=== PATIENT | male | born 1960 | race Caucasian/White ===

== ENCOUNTER 2017-03-12 15:40 | Emergency (ER) | payer BC, OTHER ==
[2017-03-12 15:52] VITALS: BP 168/99
[2017-03-12] MEDS ORDERED: Acetaminophen 500 MG Tab PO ONE (15:59)
--- NOTE | 2017-03-12 16:05 | EDM.PDOC ---
ED HPI GENERAL MEDICAL PROBLEM - General Chief Complaint: Chest Pain Stated Complaint: NAUSEA/LIGHTHEADED/SHOULDER PAIN Time Seen by Provider: 03/12/17 15:50 Source of Information: Reports: Patient, Old Records History Limitations: Reports: No Limitations - History of Present Illness INITIAL COMMENTS - FREE TEXT/NARRATIVE: 56 yo male with mild posterior chest/back pain today. Had chills this afternoon. Not aware of fever. Has no cardiac hx, but thought this might be his heart. No rash, cough, CATES, nausea, diarrhea, abdominal pain, dysuria, sore throat or earache. Here with . Nocturia x one. 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 (see below) (none) shoulders/ head Pain Score (Numeric/FACES): 3 - Related Data Allergies Allergy/AdvReac Type Severity Reaction Status Date / Time No Known Allergies Allergy Verified 12/05/15 06:50 Home Meds: Home Meds Azithromycin [IJD: Azithromycin] 250 mg PO QAM #6 tab 03/12/17 [Rx] Past Medical History HEENT History: Reports: Impaired Vision Respiratory History: Reports: None Genitourinary History: Reports: None Other Genitourinary History: spleenectomy Psychiatric History: Reports: None Endocrine/Metabolic History: Reports: Obesity/BMI 30+ Hematologic History: Reports: None Immunologic History: Reports: None Oncologic (Cancer) History: Reports: None - Infectious Disease History Infectious Disease History: Reports: Chicken Pox - Past Surgical History Cardiovascular Surgical History: Reports: Other (See Below) Other Cardiovascular Surgeries/Procedures: stress test, echo GI Surgical History: Reports: Other (See Below) Other GI Surgeries/Procedures: spleenectomy, liver lac patch Musculoskeletal Surgical History: Reports: Arthroscopic Knee Social & Family History - Tobacco Use Smoking Status *Q: Former Smoker Years of Tobacco use: 29 Packs/Tins Daily: 1 Second Hand Smoke Exposure: No - Alcohol Use Days Per Week of Alcohol Use: 0 - Recreational Drug Use Recreational Drug Use: No ED ROS GENERAL - Review of Systems Review Of Systems: See Below Constitutional: Reports: Chills. Denies: Fever, Diaphoresis, Decreased Appetite HEENT: Reports: No Symptoms Respiratory: Reports: Shortness of Breath (today with exertion, mild) Cardiovascular: Reports: Chest Pain (more in back) Endocrine: Reports: No Symptoms GI/Abdominal: Reports: No Symptoms : Reports: No Symptoms Musculoskeletal: Reports: Back Pain Skin: Reports: No Symptoms Neurological: Reports: No Symptoms ED EXAM, GENERAL - Physical Exam Exam: See Below Exam Limited By: No Limitations General Appearance: Alert, WD/WN, No Apparent Distress Eye Exam: Bilateral Eye: EOMI, Normal Inspection, PERRL Ears: Normal External Exam, Normal Canal, Hearing Grossly Normal, Normal TMs Ear Exam: Bilateral Ear: Auricle Normal, Canal Normal, TM normal Nose: Normal Inspection, Normal Mucosa, No Blood Throat/Mouth: Normal Inspection, Normal Lips, Normal Oropharynx, Normal Voice, No Airway Compromise Head: Atraumatic, Normocephalic Neck: Normal Inspection, Supple, Non-Tender Respiratory/Chest: No Respiratory Distress, Lungs Clear, Normal Breath Sounds, No Accessory Muscle Use Cardiovascular: Regular Rate, Rhythm, No Edema GI/Abdominal: Normal Bowel Sounds, Soft, Non-Tender, No Distention, Other ( 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 No: Distended, Guarding, Rigid, Rebound , Tender, Hernia, Mass Back Exam: Normal Inspection, Full Range of Motion. No: CVA Tenderness (R), CVA Tenderness (L), Decreased Range of Motion, Muscle Spasm, Paraspinal Tenderness, Vertebral Tenderness Extremities: Normal Inspection, Normal Range of Motion, Non-Tender, No Pedal Edema Neurological: Alert, Oriented, CN II-XII Intact, Normal Cognition, No Motor/ Sensory Deficits Psychiatric: Normal Affect, Normal Mood Skin Exam: Warm, Dry, Intact, Normal Color, No Rash Lymphatic: No Adenopathy EKG INTERPRETATION EKG Date: 03/12/17 Time: 15:50 Rhythm: NSR Rate (beats/min): 106 [place]: normal P-wave: present QRS: normal ST-T: normal QT: normal Comparison: NA - no prior EKG Course - Vital Signs Last Recorded V/S: Last Vital Signs Temp 38.8 C H 03/12/17 15:49 Pulse 108 H 03/12/17 15:49 Resp 18 06/07/17 15:49 BP 168/99 H 03/12/17 15:49 Pulse Ox 95 03/12/17 15:49 - Orders/Labs/Meds Orders: Active Orders 24 hr Category Date Time Status EKG Documentation Completion [RC] ASDIRECTED Care 03/12/17 15:51 Active Chest 2V [CR] Stat Exams 03/12/17 16:03 Taken CULTURE BLOOD [BC] Stat Lab 03/12/17 16:19 Ordered UA W/MICROSCOPIC [URIN] Stat Lab 03/12/17 16:05 Uncollected EKG 12 Lead [EK] Routine Ther 03/12/17 15:51 Ordered Labs: Laboratory Tests 03/12/17 Range/Units 16:09 WBC 9.9 (4.5-11.0) K/uL RBC 5.32 (4.30-5.90) M/uL Hgb 15.5 H (12.0-15.0) g/dL Hct 45.2 (40.0-54.0) % MCV 85 (80-98) fL MCH 29 (27-31) pg MCHC 34 (32-36) % Plt Count 282 (150-400) K/uL Meds: Medications Discontinued Medications Generic Name Dose Route Start Last Admin Trade Name Mejiaq PRN Reason Stop Dose Admin Acetaminophen 1,000 mg 03/12/17 15:59 03/12/17 16:03 Tylenol Extra Strength PO 03/12/17 16:00 1,000 mg ONETIME ONE Administration Azithromycin 500 mg 03/12/17 16:20 Zithromax PO 03/12/17 16:21 ONETIME ONE Departure - Departure Time of Disposition: 16:35 Disposition: Home, Self-Care 01 Condition: fair Clinical Impression: Pneumonia Qualifiers: Pneumonia type: due to unspecified organism Laterality: left Lung location: lower lobe of lung Qualified Code(s): J18.1 - Lobar pneumonia, unspecified organism Prescriptions: Azithromycin [IJD: Azithromycin] 250 mg PO QAM #6 tab Referrals: PCP,None [Primary Care Provider] - Forms: ED Department Discharge, Return to Work/School Form Additional Instructions: Take azithromycin as directed. Recheck in the clinic on Friday. Take acetaminophen 1000 mg every 6 hrs. Rest. Off work this week. - My Orders Last 24 Hours: My Active Orders 03/12/17 15:51 EKG Documentation Completion [RC] ASDIRECTED EKG 12 Lead [EK] Routine 03/12/17 16:03 Chest 2V [CR] Stat 03/12/17 16:05 UA W/MICROSCOPIC [URIN] Stat 03/12/17 16:19 CULTURE BLOOD [BC] Stat - Assessment/Plan Last 24 Hours: My Active Orders 03/12/17 15:51 EKG Documentation Completion [RC] ASDIRECTED EKG 12 Lead [EK] Routine 03/12/17 16:03 Chest 2V [CR] Stat 03/12/17 16:05 UA W/MICROSCOPIC [URIN] Stat 03/12/17 16:19 CULTURE BLOOD [BC] Stat
[2017-03-12] MEDS ORDERED: Azithromycin 250 MG Tab PO ONE (16:20)
--- NOTE | 2017-03-13 11:18 | CR ---
Chest 2V FINDINGS: The heart and vascular structures are normal in appearance. No infiltrates or effusions ar e demonstrated. The skeletal structures are unremarkable. IMPRESSION: Negative exam.
== END 2017-03-12 16:38 | disposition home or self-care (01) ==
LOC: JP.ED 15:40
DX: J18.9 Pneumonia, unspecified organism (principal); E66.9 Obesity, unspecified; Z90.81 Acquired absence of spleen; Z87.891 Personal history of nicotine dependence
CPT/HCPCS: 36415; 71020; 85027; 87040; 93005; 99285; A9270

== ENCOUNTER 2017-03-14 13:33 | Emergency (ER) | payer OTHER ==
[2017-03-14 13:52] VITALS: BP 95/66
--- NOTE | 2017-03-14 14:08 | EDM.PDOC ---
ED HPI GENERAL MEDICAL PROBLEM - General Chief Complaint: Respiratory Problem Stated Complaint: PNEUMONIA, FEVER Time Seen by Provider: 03/14/17 14:03 Source of Information: Reports: Patient, Family - History of Present Illness INITIAL COMMENTS - FREE TEXT/NARRATIVE: Seen in ER and diagnosed with pneumonia on Friday night. Started Zpak and has take 3 doses. Last had a temp today of 102.2. Has been taking Tylenol or Motrin. Pt does smoke but has not in the last several days. Onset: Sudden Onset Date: 03/18/17 Duration: Getting Worse, Intermittent Location: Reports: Chest Severity: Moderate Improves with: Reports: Medication Worsens with: Reports: None Associated Symptoms: Reports: Fever/Chills, Loss of Appetite, Malaise, Nausea/ Vomiting, Shortness of Breath hips Pain Score (Numeric/FACES): 4 - Related Data Allergies Allergy/AdvReac Type Severity Reaction Status Date / Time No Known Allergies Allergy Verified 03/14/17 13:44 Home Meds: Home Meds Azithromycin [IJD: Azithromycin] 250 mg PO QAM #6 tab 03/12/17 [Rx] Past Medical History HEENT History: Reports: Impaired Vision Respiratory History: Reports: None Genitourinary History: Reports: None Other Genitourinary History: spleenectomy Psychiatric History: Reports: None Endocrine/Metabolic History: Reports: Obesity/BMI 30+ Hematologic History: Reports: None Immunologic History: Reports: None Oncologic (Cancer) History: Reports: None - Infectious Disease History Infectious Disease History: Reports: Chicken Pox - Past Surgical History Cardiovascular Surgical History: Reports: Other (See Below) Other Cardiovascular Surgeries/Procedures: stress test, echo GI Surgical History: Reports: Other (See Below) Other GI Surgeries/Procedures: spleenectomy, liver lac patch Musculoskeletal Surgical History: Reports: Arthroscopic Knee Social & Family History - Tobacco Use Smoking Status *Q: Current Some Day Smoker Years of Tobacco use: 4 Packs/Tins Daily: 0.2 Used Tobacco, but Quit: No Second Hand Smoke Exposure: No - Caffeine Use Caffeine Use: Reports: Coffee, Soda - Alcohol Use Days Per Week of Alcohol Use: 0 - Recreational Drug Use Recreational Drug Use: No ED ROS GENERAL - Review of Systems Review Of Systems: See Below Constitutional: Reports: Fever, Chills, Malaise, Fatigue, Decreased Appetite HEENT: Reports: No Symptoms Respiratory: Reports: Cough Cardiovascular: Reports: No Symptoms GI/Abdominal: Reports: No Symptoms Skin: Reports: No Symptoms Neurological: Reports: No Symptoms ED EXAM, GENERAL - Physical Exam Exam: See Below Exam Limited By: No Limitations General Appearance: Alert, WD/WN, No Apparent Distress Ears: Normal External Exam, Normal Canal, Hearing Grossly Normal, Normal TMs Ear Exam: Bilateral Ear: Auricle Normal, Canal Normal, TM normal Nose: Normal Inspection, Normal Mucosa, No Blood Throat/Mouth: Normal Inspection, Normal Lips, Normal Teeth, Normal Gums, Normal Oropharynx, Normal Voice, No Airway Compromise Head: Atraumatic, Normocephalic Neck: Normal Inspection, Supple, Non-Tender, Full Range of Motion Respiratory/Chest: No Respiratory Distress, Lungs Clear, Normal Breath Sounds, No Accessory Muscle Use, Chest Non-Tender Cardiovascular: Normal Peripheral Pulses, Regular Rate, Rhythm, No Edema, No Gallop, No JVD, No Murmur, No Rub Course - Vital Signs Last Recorded V/S: Last Vital Signs Temp 99.9 F 03/14/17 13:51 Pulse 100 03/14/17 13:51 Resp 16 03/14/17 13:51 BP 95/66 03/14/17 13:51 Pulse Ox 93 L 03/14/17 13:51 - Orders/Labs/Meds Labs: Laboratory Tests 03/14/17 Range/Units 14:16 WBC 6.7 (4.5-11.0) K/uL RBC 5.53 (4.30-5.90) M/uL Hgb 16.2 H (12.0-15.0) g/dL Hct 46.1 (40.0-54.0) % MCV 83 (80-98) fL MCH 29 (27-31) pg MCHC 35 (32-36) % Plt Count 158 (150-400) K/uL Neut % (Auto) 93 H (36-66) % Lymph % (Auto) 4 L (24-44) % Whiteside % (Auto) 3 (2-6) % Eos % (Auto) 0 L (2-4) % Baso % (Auto) 0 (0-1) % Departure - Departure Time of Disposition: 14:26 Disposition: Home, Self-Care 01 Condition: good Clinical Impression: Pneumonia Qualifiers: Pneumonia type: due to unspecified organism Laterality: left Lung location: lower lobe of lung Qualified Code(s): J18.1 - Lobar pneumonia, unspecified organism - Discharge Information Instructions: Community-Acquired Pneumonia, Adult, [id number] Forms: ED Department Discharge Additional Instructions: CBC improved from previous. Reassured the pt and spouse that he is responding to antibiotic. He is to continue full course of antibiotics. Encouraged smoking cessation. Increase fluids and rest. No work until fever free for 24 hours. - Problem List & Annotations (1) Pneumonia SNOMED Code(s): 348525049 Code(s): J18.9 - PNEUMONIA, UNSPECIFIED ORGANISM Status: Acute Priority: Low Current Visit: No Qualifiers: Pneumonia type: due to unspecified organism Laterality: left Lung location: lower lobe of lung Qualified Code(s): J18.1 - Lobar pneumonia, unspecified organism - Problem List Review Problem List Initiated/Reviewed/Updated: Yes
== END 2017-03-14 14:50 | disposition home or self-care (01) ==
LOC: JP.ED 13:33
DX: J18.9 Pneumonia, unspecified organism (principal); F17.210 Nicotine dependence, cigarettes, uncomplicated; E66.9 Obesity, unspecified; Z90.81 Acquired absence of spleen
CPT/HCPCS: 36415; 85025; 99284

== ENCOUNTER 2017-11-17 10:49 | Emergency (ER) | payer OTHER ==
[2017-11-17] MEDS ORDERED: HYDROmorphone 1 MG/ML Syringe IVPUSH ONE ×2 (10:56→11:53)
[2017-11-17] MEDS ORDERED: Sodium Chloride 0.9% 10 ML Syringe FLUSH PRN (10:56)
[2017-11-17] MEDS ORDERED: Ketorolac 30 MG/ML SDV IVPUSH ONE (10:56)
[2017-11-17] MEDS ORDERED: Bacitracin Oint 1 GM U/D Packet TOP ONE ×2 (10:59→11:47)
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
[2017-11-17] MEDS ORDERED: Bacitracin Oint 28.35 GM Tube TOP ONE ×2 (12:00→12:15)
[2017-11-17 12:06] VITALS: BP 163/108
== END 2017-11-17 12:24 | disposition home or self-care (01) ==
LOC: JP.ED 10:49
DX: T24.292A Burn of second degree of multiple sites of left lower limb, except ankle and foot, initial encounter (principal); T24.212A Burn of second degree of left thigh, initial encounter; E66.9 Obesity, unspecified; F17.210 Nicotine dependence, cigarettes, uncomplicated
CPT/HCPCS: 96374; 96375; 96376; 99283; A9270; J1170; J1885; J7050

== ENCOUNTER 2017-11-21 05:34 | Observation (INO) | payer OTHER ==
[2017-11-21] MEDS ORDERED: Sodium Chloride 0.9% 1,000 ML IV SCH (06:30)
[2017-11-21] MEDS ORDERED: Vit E/Lidocaine/Aloe/Collagen 14 GM TUBE TP ONE (06:47)
[2017-11-21] MEDS ORDERED: Lidocaine 1% with EPINEPHrine 1:100,000 50 ML MDV ONE (06:47)
[2017-11-21] MEDS ORDERED: Mineral Oil 10 ML Bottle ONE (06:47)
[2017-11-21] MEDS ORDERED: Scopolamine 1.5 MG Transdermal Patch TOP SCH (07:30)
[2017-11-21] MEDS ORDERED: Ondansetron 4 MG/2 ML SDV ONE (07:40)
[2017-11-21] MEDS ORDERED: Rocuronium 50 MG/5 ML Vial ONE (07:40)
[2017-11-21] MEDS ORDERED: Dexamethasone 4 MG/ML SDV ONE (07:40)
[2017-11-21] MEDS ORDERED: Propofol 200 MG/20 ML SDV ONE (07:40)
[2017-11-21] MEDS ORDERED: Neostigmine Methylsulfate 1 MG/ML 5 ML Syringe ONE (07:40)
[2017-11-21] MEDS ORDERED: Albuterol/Ipratropium 3.0-0.5 MG/3 ML Neb Soln NEB ONE (07:40)
[2017-11-21] MEDS ORDERED: Succinylcholine/Normal Saline 200 MG/10 ML Syringe ONE (07:40)
[2017-11-21] MEDS ORDERED: fentaNYL 250 MCG/5 ML SDV ONE ×2 (07:40→08:01)
[2017-11-21] MEDS ORDERED: hydrOXYzine HCl 100 MG/2 ML SDV IM PRN (08:02)
[2017-11-21] MEDS ORDERED: Acetaminophen/oxyCODONE 325-10 MG Tab PO PRN (08:02)
[2017-11-21] MEDS ORDERED: Zolpidem 5 MG Tab PO PRN (08:02)
[2017-11-21] MEDS ORDERED: Benzocaine/Cetylpyridinium/Menthol Lozenge MUCMEM PRN (08:02)
[2017-11-21] MEDS ORDERED: fentaNYL 100 MCG/2 ML SDV IVPUSH PRN (08:02)
[2017-11-21] MEDS ORDERED: Promethazine 25 MG/ML SDV IM PRN (08:02)
[2017-11-21] MEDS ORDERED: Docusate Sodium 100 MG Cap PO PRN (08:02)
[2017-11-21] MEDS ORDERED: diphenhydrAMINE 50 MG/ML SDV IVPUSH PRN (08:02)
[2017-11-21] MEDS ORDERED: Lactated Ringers 1,000 ML ONE (08:34)
[2017-11-21] MEDS ORDERED: Lidocaine 2% Jelly 30 ML Tube ONE (09:00)
[2017-11-21] MEDS ORDERED: Ketorolac 60 MG/2 ML SDV IM ONE (10:00)
[2017-11-21] MEDS: ceFAZolin 2 GM in Premix Bag 1 BAG IV ONE ×2 (10:37→13:29)
[2017-11-21] MEDS: Bacitracin Oint 28.35 GM Tube TOP ONE ×2 (10:37→13:22)
[2017-11-21 13:44] VITALS: BP 121/56
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
[2017-11-21] MEDS ORDERED: Ketorolac 60 MG/2 ML SDV IM SCH (16:00)
[2017-11-21] MEDS ORDERED: Ibuprofen 600 MG Tab PO SCH (16:00)
== END 2017-11-21 14:27 | disposition home or self-care (01) ==
LOC: JP.SDS 05:34 → JP.ICU 08:02
PROVIDERS: ADMIT Surgery; ATTEND Surgery
DX: T24.312A Burn of third degree of left thigh, initial encounter (principal); X08.8XXA Exposure to other specified smoke, fire and flames, initial encounter
CPT/HCPCS: 15002; 15003; 15100; 15101; A9270; J0690; J1100; J1885; J2405; J2704; J3010; J3410; J7040; J7120; J7620; C1762

== ENCOUNTER 2017-11-24 06:51 | Day surgery (SDC) | payer OTHER ==
[2017-11-24] MEDS ORDERED: Mineral Oil 10 ML Bottle ONE (06:54)
[2017-11-24] MEDS ORDERED: Lidocaine 1% with EPINEPHrine 1:100,000 50 ML MDV ONE (06:55)
[2017-11-24] MEDS ORDERED: Vit E/Lidocaine/Aloe/Collagen 14 GM TUBE TP ONE (06:55)
[2017-11-24] MEDS ORDERED: Albuterol/Ipratropium 3.0-0.5 MG/3 ML Neb Soln NEB ONE (07:13)
[2017-11-24] MEDS ORDERED: Bacitracin Oint 28.35 GM Tube TOP SCH (07:15)
[2017-11-24] MEDS ORDERED: Sodium Chloride 0.9% 1,000 ML IV SCH (07:30)
[2017-11-24] MEDS ORDERED: fentaNYL 100 MCG/2 ML SDV ONE (07:59)
[2017-11-24] MEDS ORDERED: Propofol 200 MG/20 ML SDV ONE (07:59)
[2017-11-24] MEDS ORDERED: Midazolam 1 MG/ML 2 ML SDV ONE (07:59)
[2017-11-24 10:03] VITALS: BP 131/68
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
== END 2017-11-24 09:50 | disposition home or self-care (01) ==
LOC: JP.SDS 06:51
PROVIDERS: ATTEND Surgery
DX: T24.302A Burn of third degree of unspecified site of left lower limb, except ankle and foot, initial encounter (principal); K21.9 Gastro-esophageal reflux disease without esophagitis; F17.200 Nicotine dependence, unspecified, uncomplicated
CPT/HCPCS: 15852; 94640; A9270; J2250; J2704; J3010; J7040; J7620

== ENCOUNTER 2017-11-28 06:36 | Day surgery (SDC) | payer OTHER ==
[2017-11-28] MEDS ORDERED: Lidocaine 1% with EPINEPHrine 1:100,000 50 ML MDV ONE (06:37)
[2017-11-28] MEDS ORDERED: Vit E/Lidocaine/Aloe/Collagen 14 GM TUBE TP ONE (06:37)
[2017-11-28] MEDS ORDERED: Mineral Oil 10 ML Bottle ONE (06:37)
[2017-11-28] MEDS ORDERED: Sodium Chloride 0.9% 1,000 ML IV SCH (07:00)
[2017-11-28] MEDS ORDERED: Bacitracin Oint 28.35 GM Tube TOP SCH (07:15)
[2017-11-28] MEDS ORDERED: Midazolam 1 MG/ML 2 ML SDV ONE (07:21)
[2017-11-28] MEDS ORDERED: Propofol 200 MG/20 ML SDV ONE ×2 (07:21→08:02)
[2017-11-28] MEDS ORDERED: fentaNYL 100 MCG/2 ML SDV ONE (07:21)
[2017-11-28] MEDS ORDERED: Acetic Acid 0.25% Solution 1,000 ML Bottle ONE (08:15)
[2017-11-28 09:11] VITALS: BP 124/85
--- NOTE | 2017-11-28 10:45 | OR ---
DATE OF PROCEDURE: 11/28/2017 PROCEDURES: 1. Dressing change under anesthesia. 2. Debridement, left leg superomedial aspect, full thickness, 2.1 x 1.3 cm. COMPLICATIONS: None. RUG CLEANING SUPERVISOR: None. ANESTHESIA: MAC. RISKS: Risks, benefits, alternatives, and limitations including, but not limited to infection, bleeding, and graft failure were explained to the patient, they wished to proceed. FINDINGS: 1. 100% graft take at this time. 2. No other gross abnormalities. PROCEDURE IN DETAIL: The patient was placed in a prone position. After the dressings were carefully removed by soaking with normal saline, these were carefully removed. The graft was noted to be 100% took. There was a full-thickness wound as described in the dimensions above. This was between the medial, superior, and inferolateral grafts. This was such a small piece that would not be amenable to grafting, but requires debridement and will heal by secondary intention. There was no evidence of infection. No significant drainage. The dressings were changed in the same fashion with Telfa with bacitracin-coated Xeroform, then followed by Mepitel Ones, then followed by Mepilex, then followed by Kerlix, then followed by Arnulfo with the brace. The patient tolerated the procedure well. Soy Madison MD /[id number]
--- NOTE | 2017-12-15 10:37 | OR ---
DATE OF PROCEDURE: 11/28/2017 ADDENDUM: Depth of debridement into the dermis approximately 9 mm. Soy Madison MD /[id number]
--- NOTE | 2017-12-18 14:58 | OR ---
DATE OF PROCEDURE: 11/28/2017 ADDENDUM: PREOPERATIVE DIAGNOSIS: Third-degree calderon, left posterior thigh. POSTOPERATIVE DIAGNOSIS: Third-degree calderon, left posterior thigh. Soy Madison MD /[id number]
== END 2017-11-28 09:40 | disposition home or self-care (01) ==
LOC: JP.SDS 06:36
PROVIDERS: ATTEND Surgery
DX: T24.312A Burn of third degree of left thigh, initial encounter (principal); T31.0 Burns involving less than 10% of body surface; F17.200 Nicotine dependence, unspecified, uncomplicated
CPT/HCPCS: 16025; A9270; J2250; J2704; J3010; J7040

== ENCOUNTER 2017-12-25 10:54 | Day surgery (SDC) | payer OTHER ==
[~2017-12-25 10:54] MED LIST: Lidocaine 2% Jelly 30 ML Tube ONE; Mineral Oil 10 ML Bottle TOP SCH
[2017-12-25] MEDS ORDERED: Lactated Ringers 1,000 ML IV SCH (11:15)
[2017-12-25] MEDS ORDERED: ceFAZolin 2 GM in Premix Bag 1 BAG IV ONE (12:00)
[2017-12-25] MEDS: Bacitracin Oint 28.35 GM Tube TOP SCH ×2 (12:05→12:45)
[2017-12-25] MEDS: Mineral Oil 10 ML Bottle ONE ×2 (12:06→12:45)
[2017-12-25] MEDS: Lidocaine 1% with EPINEPHrine 1:100,000 50 ML MDV ONE ×2 (12:06→12:45)
[2017-12-25] MEDS ORDERED: Propofol 200 MG/20 ML SDV ONE ×2 (12:28→12:33)
[2017-12-25] MEDS ORDERED: Midazolam 1 MG/ML 2 ML SDV ONE (12:28)
[2017-12-25] MEDS ORDERED: fentaNYL 100 MCG/2 ML SDV ONE (12:28)
[2017-12-25 14:45] VITALS: BP 142/92
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
== END 2017-12-25 15:14 | disposition home or self-care (01) ==
LOC: JP.SDS 10:54
PROVIDERS: ATTEND Surgery
DX: T24.302A Burn of third degree of unspecified site of left lower limb, except ankle and foot, initial encounter (principal); R73.9 Hyperglycemia, unspecified; E78.5 Hyperlipidemia, unspecified; Z90.81 Acquired absence of spleen; Z87.891 Personal history of nicotine dependence
CPT/HCPCS: 15002; 15100; 36415; 80053; 85027; A9270; C1762; J0690; J2250; J2704; J3010; J7120

== ENCOUNTER 2022-04-20 09:27 | Emergency (ER) | payer OTHER ==
[2022-04-20 09:47] VITALS: BP 136/91; PULSE 78
== END 2022-04-20 10:54 | disposition home or self-care (01) ==
LOC: JP.ED 09:27
DX: U07.1 COVID-19 (principal); E66.9 Obesity, unspecified; Z68.32 Body mass index [BMI] 32.0-32.9, adult; Z87.891 Personal history of nicotine dependence; Z79.899 Other long term (current) drug therapy; Z79.82 Long term (current) use of aspirin
CPT/HCPCS: 71046; 71046-26; 99281; 99284; U0002

== ENCOUNTER 2022-11-28 06:58 | Day surgery (SDC) | payer OTHER ==
[2022-11-28] MEDS ORDERED: Neostigmine Methylsulfate 1 MG/ML 5 ML Syringe ONE (07:09)
[2022-11-28] MEDS ORDERED: Rocuronium 50 MG/5 ML Vial ONE (07:09)
[2022-11-28] MEDS ORDERED: Propofol 200 MG/20 ML SDV ONE (07:09)
[2022-11-28] MEDS ORDERED: Dexamethasone 4 MG/ML SDV ONE (07:09)
[2022-11-28] MEDS ORDERED: Succinylcholine 200 MG/10 ML MDV ONE (07:09)
[2022-11-28] MEDS ORDERED: Ondansetron 4 MG/2 ML SDV ONE (07:09)
[2022-11-28] MEDS ORDERED: Glycopyrrolate 0.2 MG/ML 5 ML MDV ONE (07:09)
[2022-11-28] MEDS ORDERED: fentaNYL 250 MCG/5 ML SDV ONE ×2 (07:12→09:01)
[2022-11-28] MEDS ORDERED: Bupivacaine 0.5% 50 ML MDV ONE (07:13)
[2022-11-28] MEDS ORDERED: Lidocaine 1% with EPINEPHrine 1:100,000 50 ML MDV ONE (07:13)
[2022-11-28] MEDS ORDERED: Sodium Chloride 0.9% 1,000 ML IV SCH (07:30)
[2022-11-28 07:59] LABS: ESTIMATED GFR 69 mL/min (>60)
[2022-11-28] MEDS ORDERED: ceFAZolin 2 GM in Sodium Chloride 0.9% 50 ML IV ONE (08:45)
[2022-11-28] MEDS ORDERED: metroNIDAZOLE/Normal Saline 500 MG in Premix Bag 1 BAG IV ONE (08:45)
[2022-11-28] MEDS ORDERED: Lidocaine 1% with EPINEPHrine 1:100,000 50 ML MDV INJECT ONE ×2 (08:55)
[2022-11-28] MEDS ORDERED: Bupivacaine 0.5% 50 ML MDV INJECT ONE ×2 (08:55)
[2022-11-28] MEDS ORDERED: Scopolamine 1.5 MG Transdermal Patch ONE (09:09)
[2022-11-28] MEDS ORDERED: hydrOXYzine HCL 100 MG/2 ML SDV IM ONE ×2 (10:40→11:30)
[2022-11-28] MEDS ORDERED: fentaNYL 50 MCG/ML SDV IVPUSH ONE (10:41)
[2022-11-28] MEDS ORDERED: Acetaminophen/HYDROcodone 325-5 MG Tab PO PRN (11:10)
[2022-11-28] MEDS ORDERED: Ondansetron 4 MG/2 ML SDV IVPUSH PRN (11:11)
[2022-11-28] MEDS ORDERED: Metoclopramide 10 MG/2 ML SDV IVPUSH PRN (11:12)
[2022-11-28] MEDS ORDERED: Morphine 2 MG/ML SYRINGE IVPUSH PRN (11:30)
[2022-11-28 14:28] VITALS: BP 150/93; PULSE 109
== END 2022-11-28 15:43 | disposition home or self-care (01) ==
LOC: JP.SDS 06:58
PROVIDERS: ATTEND Surgery
DX: K43.2 Incisional hernia without obstruction or gangrene (principal); E78.5 Hyperlipidemia, unspecified; R73.9 Hyperglycemia, unspecified; E66.01 Morbid (severe) obesity due to excess calories; Z98.890 Other specified postprocedural states; Z79.899 Other long term (current) drug therapy; Z87.891 Personal history of nicotine dependence; Z68.37 Body mass index [BMI] 37.0-37.9, adult
CPT/HCPCS: 36415; 49592; 80053; 85027; A9270; C1781; J0171; J0330; J0690; J1100; J2405; J2704; J2710; J2795; J3010; J3410; J3490; J7030

== ENCOUNTER 2024-08-22 06:42 | Emergency (ER) | payer OTHER ==
[2024-08-22 07:40] LABS: BASOPHILS PERCENT AUTO 0.6 % (0.1-1.3); EOSINOPHILS ABSOLUTE AUTO 0.46 K/uL (0.00-0.40); EOSINOPHILS PERCENT AUTO 2.7 % (0.0-5.4); HEMATOCRIT 45.5 % (38.4-49.7); HEMOGLOBIN 15.6 g/dL (12.9-16.9); IMMATURE GRAN ABSOLUTE AUTO 0.09 K/uL (0.00-0.23); IMMATURE GRAN PERCENT AUTO 0.5 % (0.0-0.7); LYMPHOCYTES ABSOLUTE AUTO 1.24 K/uL (0.8-3.3); LYMPHOCYTES PERCENT AUTO 7.2 % (11.4-47.7); MEAN CORPUSCULAR HEMOGLOBIN 30.4 pg (31.6-35.5); MEAN CORPUSCULAR HGB CONC 34.3 g/dL (31.6-35.5); MEAN CORPUSCULAR VOLUME 88.5 fL (81.4-99.0); MONOCYTES ABSOLUTE AUTO 1.91 K/uL (0.20-0.90); MONOCYTES PERCENT AUTO 11.1 % (3.3-12.6); NEUTROPHILS ABSOLUTE AUTO 13.48 K/uL (1.0-7.6); NEUTROPHILS PERCENT AUTO 77.9 % (40.0-78.1); PLATELET COUNT,PLT 315 K/uL (130-375); RED BLOOD CELL COUNT 5.14 M/uL (4.14-5.76); WHITE BLOOD CELL COUNT,WBC 17.3 K/uL (3.2-11.0)
[2024-08-22 07:58] LABS: ANION GAP 8.9 mmol/L (5.0-14.0); BLOOD UREA NITROGEN,BUN 16 mg/dL (7-18); C-REACTIVE PROTEIN 4.11 mg/dL (<0.50); CALCIUM 10.2 mg/dL (8.5-10.1); CARBON DIOXIDE,CO2 29 mmol/L (21-32); CHLORIDE,CL 104 mmol/L (100-108); CREATININE 1.2 mg/dL (0.8-1.3); ESTIMATED GFR 68 mL/min (>60); GLUCOSE RANDOM 126 mg/dL (74-106); POTASSIUM,K 3.9 mmol/L (3.6-5.2); SODIUM,NA 142 mmol/L (140-148)
[2024-08-22] MEDS: Ketorolac 30 MG/ML SDV IM ONE (08:22)
[2024-08-22] MEDS: cefTRIAXone 1 GM, Lidocaine 1% 2.1 ML IM ONE (08:24)
[2024-08-22 08:44] VITALS: BP 188/122; PULSE 94
== END 2024-08-22 09:23 | disposition home or self-care (01) ==
LOC: JP.ED 06:42
DX: L03.113 Cellulitis of right upper limb (principal); E78.00 Pure hypercholesterolemia, unspecified; E66.9 Obesity, unspecified; Z86.16 Personal history of COVID-19; Z90.81 Acquired absence of spleen; Z79.82 Long term (current) use of aspirin; Z79.899 Other long term (current) drug therapy; Z68.35 Body mass index [BMI] 35.0-35.9, adult
CPT/HCPCS: 36415; 73200; 76377; 80048; 84145; 85025; 86140; 96372; 99284; J0696; J1885; 99283